=== PATIENT | male | born 2000 ===

== ENCOUNTER 2021-05-24 20:14 | Emergency (ER) | payer BC ==
[~2021-05-24] VITALS: Ht 175.3 cm; Wt 88.6 kg
[2021-05-24 20:36] VITALS: TEMP 98.6
[2021-05-24 22:47] VITALS: BP 117/68; PULSE 86
== END 2021-05-24 22:47 | disposition home or self-care (01) ==
LOC: COL.ER 20:14
DX: S93.401A Sprain of unspecified ligament of right ankle, initial encounter (principal); X50.0XXA Overexertion from strenuous movement or load, initial encounter; Y93.39 Activity, other involving climbing, rappelling and jumping off